=== PATIENT | male | born 1950 | race Two or more races ===

== ENCOUNTER 2025-07-01 10:42 | Emergency (ER) | payer OTHER ==
[~2025-07-01] VITALS: Ht 177.8 cm; Wt 79.4 kg
[2025-07-01 10:55] VITALS: BP 166/71; O2SAT 97
[2025-07-01 12:28] LABS: BASO % 0.8 % (0.1-1.2); EOS # 0.23 (0.04-0.54); EOS % 3.2 % (0.7-7.0); LYMPH # 1.47 (1.18-3.74); LYMPH % 20.7 % (19.3-53.1); MEAN PLATELET VOLUME 9.40 fl (9.4-12.4); MONO # 0.62 (0.24-0.82); MONO % 8.7 % (4.7-12.5); NEUT # 4.70 (1.56-6.13); NEUT % 66.2 % (34.0-71.1); RED CELL DISTRIBUTION WIDTH 13.1 % (11.6-14.4)
[2025-07-01 12:44] LABS: ERYTHROCYTE SEDIMENTATION RATE 6 mm/hr (0-20)
[2025-07-01 13:30] LABS: ALT/SGPT 39.0 U/L (12-78); AST/SGOT 26.0 U/L (15-37); BILIRUBIN TOTAL 0.34 mg/dL (0.3-1.2); BUN CREA RATIO 19.0 (7.0-25.0); CREATININE SERUM 0.89 mg/dL (0.70-1.30); GFR 83.79; GLOBULINA 3.3 G/DL (2.4-3.5); GLUCOSE FASTING 108.0 mg/dL (65-100); OSMOLALITY SERUM 278.0 MOSM/KG (275-295)
== END 2025-07-01 15:57 | disposition home or self-care (01) ==
LOC: ER 11:14
PROVIDERS: Preventive Medicine Public Health & General Preventive Medicine
DX: R32 Unspecified urinary incontinence (principal); R26.81 Unsteadiness on feet; I10 Essential (primary) hypertension